=== PATIENT | male | born 1970 | race Two or more races ===

== ENCOUNTER 2021-01-03 17:32 | Inpatient (IN) | payer OTHER ==
[~2021-01-03] VITALS: Ht 170.2 cm; Wt 80.7 kg
[2021-01-03] MEDS ORDERED: NEURONTIN300 MG PO (17:58)
[2021-01-03] MEDS ORDERED: NORVASC10 MG PO (17:58)
[2021-01-03] MEDS ORDERED: TAPAZOLE10 MG PO (17:58)
[2021-01-03] MEDS ORDERED: LIPITOR40 M1 (17:58)
[2021-01-06] MEDS ORDERED: TAPAZOLE10 MG PO (08:59)
[2021-01-06] MEDS ORDERED: ELIQUIS5 MG PO (08:59)
[2021-01-06] MEDS ORDERED: AMLODIPINE BESY10 MG PO (08:59)
[2021-01-06] MEDS ORDERED: LOPRESSOR25 MG PO (08:59)
[2021-01-06] MEDS ORDERED: LIPITOR40 MG PO (08:59)
== END 2021-01-06 09:33 | disposition home or self-care (01) | DRG 312 ==
LOC: ER 17:32 → MEDJ 23:57 → SEC-K 23:57 → MEDI 01-04 08:16 → MEDJ 01-04 09:15
PROVIDERS: ADMIT Internal Medicine; ATTEND Internal Medicine
PROC: B020ZZZ Computerized Tomography (CT Scan) of Brain (ICD-10-PCS; 2021-01-03)
PROC: B345ZZZ Ultrasonography of Bilateral Common Carotid Arteries (ICD-10-PCS; 2021-01-03)
PROC: B24BYZZ Ultrasonography of Heart with Aorta using Other Contrast (ICD-10-PCS; 2021-01-03)
PROC: 4A12X4Z Monitoring of Cardiac Electrical Activity, External Approach (ICD-10-PCS; principal; 2021-01-04)
PROC: B030ZZZ Magnetic Resonance Imaging (MRI) of Brain (ICD-10-PCS; 2021-01-04)
PROC: [UNRECOGNIZED PROCEDURE] (2021-01-05)
DX: R55 Syncope and collapse (principal); I48.91 Unspecified atrial fibrillation; E03.9 Hypothyroidism, unspecified; I10 Essential (primary) hypertension; E78.5 Hyperlipidemia, unspecified; Z20.822 Contact with and (suspected) exposure to COVID-19
CPT/HCPCS: 70551